=== PATIENT | female | born 1970 | race Two or more races ===

== ENCOUNTER 2023-10-10 11:00 | Outpatient (AMB) | payer BC, SELFPAY ==
--- NOTE | 2023-10-10 11:09 | MHC.OFFVIS ---
Intake Visit Reasons: Right shoulder pain Intake Note: Vivienne is a 53 year old Right hand dominant female who presents with Right shoulder pain and weakness. 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 She has not been able to lift significant weight for the last few years because of her right shoulder pain and weakness. She reports weakness when lifting her right hand above shoulder height. She has failed conservative treatment over the last 6 weeks. She has done physical therapy exercises which aggravated her pain. She has also tried Tylenol and anti-inflammatory medicines which gave her minimal relief. She denies any numbness or tingling in either of her upper extremities. Allergies No Known Allergies Allergy (Verified 10/10/23 11:14) Medication List - Last Reconciled 10/10/23 by Cabrera Rey MD amlodipine 2.5 mg PO DAILY aspirin 81 mg PO DAILY isosorbide mononitrate ER 30 mg PO DAILY omeprazole 20 mg PO DAILY rosuvastatin 10 mg PO BEDTIME PFSH Surgical History (Updated 10/10/23 @ 11:16 by Kamille Ferguson CMA) Hx of tonsillectomy History of surgery on wrist H/O breast augmentation History of appendectomy Social History (Updated 10/10/23 @ 11:17 by Kamille Freguson CMA) Patient Tobacco Use Status: Never used Tobacco Current occupational status: employed Current occupation: medical interperter, Right hand dominant Physical Exam Const Other: Well-nourished well-developed very friendly female awake alert and oriented x3 in no acute distress Extrem Other: Bilateral upper extremity examination shows good capillary refill, no skin lesions noted, normal sensation light touch Right shoulder examination shows decreased range of motion when compared to her left shoulder, 4+ out of 5 strength with supraspinatus testing, positive impingement signs, tenderness over her acromioclavicular joint, no instability Results Reviewed Results Reviewed: X-rays of the patient's right shoulder show severe acromioclavicular joint narrowing, a type 2 acromion, no acute bony abnormalities Assessment & Plan Assessment & Plan (1) Right shoulder pain: Code(s): M25.511 - Pain in right shoulder Category: Medical Plan Mrs. Blanton presents with progressively worsening right shoulder pain and weakness due to impingement syndrome and possible full-thickness rotator cuff tearing. Thus, I will send the patient for an MRI of her right shoulder for further evaluation. I will see her back once the MRI is completed to discuss the findings and treatment options. She will continue with her activity modifications in the meantime. I spent 20 minutes in reviewing the patient's records and imaging studies, seeing the patient and documenting in the medical record. Orders: Orders MR shoulder RT wo con Today M25.511 - Pain in right shoulder Coding Level of Care Code New Pt Level 3 (00119) Diagnoses Right shoulder pain M25.511
== END 2023-10-10 11:43 | disposition home or self-care (01) ==
PROVIDERS: Visit Provider Orthopaedic Surgery
DX: M25.511 Pain in right shoulder (principal)
CPT/HCPCS: 99203

== ENCOUNTER 2023-10-10 15:43 | Outpatient (REF) | payer BC, SELFPAY ==
--- NOTE | ~2023-10-10 | XR_ITS ---
EXAMINATION: XR SHOULDER, RIGHT CLINICAL INFORMATION: Pain in right shoulder. COMPARISON: None available. TECHNIQUE: Two views of the right shoulder. FINDINGS: The bones are diffusely demineralized. Degenerative changes with narrowing and hypertrophic change in the acromioclavicular joint. Glenohumeral alignment preserved. Faint amorphous calcifications in the soft tissues adjacent to the greater tuberosity suggestive of rotator cuff pathology. XR/XR shoulder RT min 2V IMPRESSION: 1. Degenerative changes in the acromioclavicular joint. 2. Faint amorphous calcifications in the soft tissues adjacent to the greater tuberosity suggestive of rotator cuff pathology.
== END 2023-10-10 15:44 | disposition home or self-care (01) ==
LOC: HO.HOSX 15:43
PROVIDERS: Visit Provider Orthopaedic Surgery
DX: M25.512 Pain in left shoulder (principal)
CPT/HCPCS: 73030